=== PATIENT | female | born 1995 | race Caucasian/White ===

== ENCOUNTER 2024-03-21 05:34 | Emergency (ER) | payer OTHER ==
[2024-03-21 06:02] VITALS: BP 152/91; PULSE 80; RESP 20; TEMP 98.7; BMI 31.3
[2024-03-21] MEDS ORDERED: KETOROLAC TROMETHAMINE 30 MG/1 ML VIAL ONE (06:06)
[2024-03-21] MEDS ORDERED: ACETAMINOPHEN 325 MG TABLET (FP) ONE (06:06)
[2024-03-21] MEDS: KETOROLAC TROMETHAMINE 30 MG/1 ML VIAL IM ONE (06:13)
[2024-03-21] MEDS: ACETAMINOPHEN 500 MG TABLET (FP) PO ONE (06:14)
== END 2024-03-21 06:40 | disposition home or self-care (01) ==
LOC: JER 05:34
PROC: 3E0133Z Introduction of Anti-inflammatory into Subcutaneous Tissue, Percutaneous Approach (ICD-10-PCS; principal; 2024-03-21)
DX: R68.84 Jaw pain (principal); K08.89 Other specified disorders of teeth and supporting structures
CPT/HCPCS: 99284-25